=== PATIENT | male | born 1990 | race Caucasian/White ===

== ENCOUNTER 2019-07-18 17:05 | Emergency (ER) | payer MEDICAID ==
[~2019-07-18] VITALS: Ht 157.5 cm; Wt 53.5 kg
[2019-07-18 17:06] VITALS: BP_SYST 118
[2019-07-18 18:00] VITALS: BP_SYST 118
== END 2019-07-18 18:00 ==
LOC: SED 17:05
DX: Z02.89 Encounter for other administrative examinations (principal)
CPT/HCPCS: 99283